=== PATIENT | male | born 1985 | race Caucasian/White ===

== ENCOUNTER 2018-08-27 15:13 | Emergency (ER) | payer SELFPAY ==
[2018-08-27 15:20] VITALS: BP 124/73
[2018-08-27] MEDS ORDERED: ACETAMINOPHEN 325 MG TABLET PO ONE (16:17)
[2018-08-27] MEDS ORDERED: LIDOCAINE 5% (700 MG) TRANSDERMAL ADH..PATCH TP ONE (16:17)
[2018-08-27] MEDS ORDERED: IBUPROFEN 600 MG TABLET PO ONE (16:17)
--- NOTE | 2018-08-27 16:48 | ER Document Report ---
HPI - HPI Time Seen by Provider: 08/27/18 16:09 Pain Level: 4 Context: Patient is a 33-year-old male who presents to the emergency department with a chief complaint of low back pain. The pain started yesterday. 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 He has had sciatic nerve pain before, but states this feels different than last time. He took Motrin this morning for the pain, but states it did not help. 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 Past Medical History - General Information source: Patient - Social History Smoking Status: Current Every Day Smoker Frequency of alcohol use: Occasional Drug Abuse: None Family History: Reviewed & Not Pertinent Vertical Provider Document - INFECTION CONTROL TRAVEL OUTSIDE OF THE [place] IN LAST 30 DAYS: No - HEENT HEENT: Atraumatic - NECK Neck: Normal Inspection - RESPIRATORY Respiratory: Breath Sounds Normal - CARDIOVASCULAR Cardiovascular: Regular Rate, Regular Rhythm - BACK Back: Normal Inspection Notes: Tenderness to bilateral lower back, with tenderness to sciatic nerve bilaterally. Course - Re-evaluation Re-evalutation: Differential diagnosis for back pain includes muscle spasm, muscle strain, slipped disc cauda equina syndrome, vertebral fracture, vertebral tumor, epidural abscess, pyelonephritis, or AAA. Based on history and exam, the most likely etiology of the patient's back pain is sciatic nerve pain. Emergent MRI is not indicated at this time because the patient does not have new weakness, or cauda equina syndrome. Patient doesnot have bladder or bowel dysfunction. Patient does have a history of IV drug use, but I do not suspect an epidural abscess because he denies fevers, general malaise, or any other constitutional symptoms at this time. Patient does not have recent weight loss or night sweats, and does not have a known history of cancer. Patient's physical exam is most consistent with sciatic nerve pain. His nerve pain is bilateral and radiates down both legs. - Vital Signs Vital signs: Temp Pulse Resp BP Pulse Ox 98.6 F 94 16 124/73 99 08/27/18 15:16 18 15:16 08/27/18 15:16 08/27/18 15:16 08/27/18 15:16 Discharge - Discharge Clinical Impression: Low back pain Qualifiers: Chronicity: acute Back pain laterality: bilateral Sciatica presence: with sciatica Sciatica laterality: bilateral sciatica Qualified Code(s): M54.42 - Lumbago with sciatica, left side Condition: Stable Disposition: HOME, SELF-CARE Additional Instructions: You were seen today in the emergency department for back pain. Your back pain is most consistent with sciatic nerve pain. You may take ibuprofen 600 mg and acetaminophen 1000 mg every 6 hours as needed for the pain. You may also buy [id number] Aspercreme with lidocaine and apply to the area per box instructions. If you develop a fever greater than 100.4 F, lose bowel or bladder function, are unable to walk, or have any symptoms that are worrisome to you, please return to the emergency department.
== END 2018-08-27 17:28 | disposition home or self-care (01) ==
LOC: ER 15:13
DX: M54.42 Lumbago with sciatica, left side (principal); X50.1XXA Overexertion from prolonged static or awkward postures, initial encounter; F17.200 Nicotine dependence, unspecified, uncomplicated
CPT/HCPCS: 99283